=== PATIENT | female | born 1975 | race Caucasian/White ===

== ENCOUNTER 2020-03-14 12:10 | Emergency (ER) | payer OTHER, MEDICAID, SELFPAY ==
[2020-03-14] VITALS (7 sets, daily range): BP systolic 96–136; BP diastolic 64–88; PULSE 73–102; RESP 16–18; TEMP 36.2; O2SAT 85–99; BMI 29.5
--- NOTE | 2020-03-14 13:24 | ED.BACK ---
HPI - Back Pain/Injury <COSME Max - Last Filed: 03/15/20 02:19> General Chief Complaint: Urogenital-Female Stated Complaint: was admitted at for kidney infection, not chirag Time Seen by Provider: 03/14/20 12:35 Source: patient Mode of arrival: Ambulatory Limitations: no limitations History of Present Illness HPI Narrative: This is a 44-year-old female, smoker, who was recently diagnosed with pyelonephritis at [facility] 2 weeks ago and had completed 10 day course of Septra DS presents to ED with chief complain of sacrum discomfort. Patient reports she feels somewhat better after the antibiotic medication treatment and no longer has fever, chills, nausea, vomiting, bilateral flank pain. Patient denies urinary frequency, urgency, dysuria, or hematuria. Patient denies abdominal or suprapubic pain. Patient denies rash on her back. She reports now she has intermittent very low back pain in sacrum region and difficulty with movements and severe pain with certain positions. Patient reports pain was so severe she was stuck in 1 position last night for a long time. Patient reports it feels like when she had back labor. She has history of back pain and scoliosis but usually it is located in thoracic region. Patient denies lifting heavy objects recently, no recent spine manipulations or injections. Patient denies saddle anesthesia, weakness/numbness/tingling to lower extremities. Patient reports chronic constipation as well and she had small amount of pebble like stools yesterday after sitting prolonged on a toilet. She drank a bottle of magnesium citrate yesterday without good results. Patient reports currently her pain is 0/10. Related Data Previous Rx's Medication Instructions Recorded cyclobenzaprine 10 mg PO BEDTIME PRN #7 tab 03/14/20 lidocaine 1 patch TOP Q24H PRN #30 each 03/14/20 Allergies Allergy/AdvReac Type Severity Reaction Status Date / Time No Known Drug Allergies Allergy Verified 03/14/20 12:48 Review of Systems <COSME Max - Last Filed: 03/15/20 02:19> Review of Systems Narrative: General: Denies fever, chills, fatigue, malaise, sweats. HEENT: Denies sinus pain, ear pain, sore throat, difficulty swallowing, dizziness. Respiratory: Denies dyspnea, cough, wheezing, hemoptysis, sputum. Cardiovascular: Denies chest pain, palpitations, orthopnea, edema. Gastrointestinal: See HPI : See HPI Musculoskeletal: See HPI Skin: Denies rash, skin lesions, or other. Neurologic: Denies weakness, headache, numbness, change in speech, confusion, seizures, incoordination. Psychiatric: No concerning psychosocial issues. 12-point review of systems is negative except for those stated above. Patient History <COSME Max - Last Filed: 03/15/20 02:19> Medical History Bladder infection (Acute) Drug use (Acute) Hypertension (Acute) Pyelonephritis (Acute) Scoliosis (Acute) Thoracic back pain (Acute) Surgical History History of ankle surgery (Acute) Social History Smoking Status: Current every day smoker Smoking Status: Current every day smoker tobacco type: cigarettes alcohol intake frequency: 0-2 drinks per day Substance Use Type: heroin (Smokes. Stop using IV drug use 09/21) Exam <COSME Max - Last Filed: 03/15/20 02:19> Narrative Exam Narrative: GEN: Alert, oriented x 3, well appearing and nourished, and in no acute distress. Head: Normal cephalic, atraumatic. No scalp or temporal tenderness, palpable mass or rash. EYES: Pupils are equal, round, and reactive to light and accommodation. Extraocular muscles are intact bilaterally. There is no subconjunctival hemorrhage, exudate and sclera non-icteric. ENT: Hearing grossly intact. Nose without bleeding, purulent discharge or deviation. Airway patent. Neck: Trachea in midline. No JVD, non-tender without lymphadenopathy. No masses or thyroid megaly. Supple, non-tender and no meningeal signs. CARDIAC: Normal regular rate and rhythm without murmurs, gallops, or rubs. No chest wall tenderness. No peripheral edema, cyanosis or pallor. Capillary refill is less than 2 seconds. RESPIRATORY: Lungs are clear to auscultate bilaterally. No cough, wheezes, rales, or rhonchi. No stridor, respiratory distress, increase work of breathing, or accessary muscle used. ABD: Abdomen soft, nontender and non-distended. No guarding or rebound tenderness to palpate. Bowel sounds are normal in all 4 quadrants. There is no palpable masses or organomegaly. EXT: Full painless ROM of all extremities with no loss of sensation, equal strength in bilateral lower extremities, no effusion or edema. SKIN: Warm, dry, normal color for patient. No erythema, lesions or rash over visible areas. NEUROLOGICAL: Alert and oriented to place, time and person. Sensation and motor function intact bilaterally. No facial droops, dysphasia. PSYCHIATRIC: Good judgement and reason, without hallucinations, abnormal affect or abnormal behaviors during the examination. Patient is not suicidal. Initial Vital Signs Initial Vital Signs: Vital Signs Pulse Rate 101 H 03/14/20 12:28 Blood Pressure 136/88 03/14/20 12:28 Pulse Oximetry 99 03/14/20 12:28 Back/Spine/Pelvis Thoracic/Lumbar Spine: thoracic and lumbar spine normal to inspection, No surgical scar(s) present, No paraspinal tenderness, No thoraco-lumbar ROM limited, No thoracic spinal tenderness and No lumbar spinal tenderness Sacroiliac Joints: tender to palpation bilateral Sacrum: no ecchymosis, no erythema, no swelling and tenderness bilaterally <Raquel Garcia DO - Last Filed: 03/20/20 09:37> Initial Vital Signs Initial Vital Signs: Vital Signs Pulse Rate 101 H 03/14/20 12:28 Blood Pressure 136/88 03/14/20 12:28 Pulse Oximetry 99 03/14/20 12:28 Scores <COSME Max - Last Filed: 03/15/20 02:19> GCS [place] coma scale eye opening: Spontaneous Bianca coma scale verbal response: Orientated [place] coma scale motor response: Obey commands [place] coma scale total score: 15 qSOFA Altered Mental Status (GCS <15): No Respiratory rate greater than/equal to 22: No Systolic blood pressure less than or equal to 100: No qSOFA Total: 0 0-1 Not High Risk 1-3 High risk Course <COSME Max - Last Filed: 03/15/20 02:19> Orders Ordered: Discontinued Medications Acetaminophen (Tylenol) 650 mg PO NOW ONE Stop: 03/14/20 12:51 Last Admin: 03/14/20 13:29 Dose: 650 mg Documented by: RMARTIN Ketorolac Tromethamine (Toradol) 30 mg IM NOW ONE Stop: 03/14/20 12:51 Last Admin: 03/14/20 13:29 Dose: 30 mg Documented by: RMARTIN Lidocaine (Lidoderm) 1 each TOP NOW ONE Stop: 03/14/20 12:51 Last Admin: 03/14/20 13:29 Dose: 1 each Documented by: RMARTIN Vital Signs Vital signs: Vital Signs - 8 hr 03/14/20 12:32 Temperature 97.1 F L Pulse Rate 102 H Respiratory Rate 18 Blood Pressure 136/88 Pulse Oximetry 99 <Raquel Garcia DO - Last Filed: 03/20/20 09:37> Orders Ordered: Discontinued Medications Acetaminophen (Tylenol) 650 mg PO NOW ONE Stop: 03/14/20 12:51 Last Admin: 03/14/20 13:29 Dose: 650 mg Documented by: RMARTIN Ketorolac Tromethamine (Toradol) 30 mg IM NOW ONE Stop: 03/14/20 12:51 Last Admin: 03/14/20 13:29 Dose: 30 mg Documented by: RMARTIN Lidocaine (Lidoderm) 1 each TOP NOW ONE Stop: 03/14/20 12:51 Last Admin: 03/14/20 13:29 Dose: 1 each Documented by: RMARTIN Vital Signs Vital signs: Vital Signs - 8 hr 03/14/20 12:32 Temperature 97.1 F L Pulse Rate 102 H Respiratory Rate 18 Blood Pressure 136/88 Pulse Oximetry 99 MDM - Back Pain/Injury <COSME Max - Last Filed: 03/15/20 02:19> Differential Diagnosis Differential diagnosis: Likely lumbar radiculopathy, pyelonephritis, discitis and other (Low back pain, UTI, pyelonephritis, equina syndrome, ) Medical Records Attestation: I reviewed the patient's medical records. Lab Data Result diagrams: 03/14/20 13:39 03/14/20 13:39 Labs: Lab Results 03/14/20 03/14/20 03/14/20 Range/Units 13:39 13:39 13:39 WBC 9.4 (4.5-11.0) X10^3/uL RBC 3.91 L (4.0-5.2) X10^6/uL Hgb 11.2 L (12.0-16.0) g/dL Hct 33.7 L (36-46) % MCV 86.2 (80-100) fL MCH 28.7 (26-34) PG MCHC 33.4 (30-36) % RDW 12.9 (11.6-14.8) % Plt Count 351 (150-400) X10^3/uL Neut % (Auto) 67.4 (50-75) % Lymph % (Auto) 22.3 L (25-40) % [place] % (Auto) 5.4 (3-14) % Eos % (Auto) 4.2 H (2-4) % Baso % (Auto) 0.7 (0-2) % Neut # (Auto) 6400 (9736-6463) /uL Lymph # (Auto) 2100 (0686-1772) /uL [place] # (Auto) 500 (0-900) /uL Eos # (Auto) 400 (0-450) /uL Baso # (Auto) 100 (0-100) /uL Sodium 137 (137-145) mmol/L Potassium 4.4 (3.4-5.1) mmol/L Chloride 102 (98-107) mmol/L Carbon Dioxide 28 (22-32) mmol/L BUN 11 (7-17) mg/dL Creatinine 0.55 (0.52-1.04) mg/dL Estimated GFR > 60.0 (>60) mL/min BUN/Creatinine Ratio 20.0 (6-22) Glucose 104 H (70-100) mg/dL Lactate 0.8 (0.7-2.1) mmol/L Calcium 9.4 (8.4-10.2) mg/dL Point of Care Testing Test Results Negative Urine Dip Bedside Urine Glucose Negative Bedside Urine Bilirubin - Negative Bedside Urine Ketone - Negative Urine Specific [place] 1.025 Bedside Urine Occult Blood - Negative Bedside Urine pH 6.0 Bedside Urine Protein +/- 15 Bedside Urine Urobilinogen +/- 1mg Bedside Urine Nitrite - Negative Bedside Urine Leukocytes - Negative Esterase Imaging Data Abdominal x-ray: Radiologist's Impression: [address] [place] [address] XRay Report Signed Patient: Tonie Becerra [facility]#: [id number] : 1975Acct:[id number] Age/Sex: 44 / FDate of Service: 03/14/20 Loc: ED Accession Number: [id number] Procedure: XR acute abdomen series Ordering Provider: Tony Mantilla PROCEDURE: XR ACUTE ABDOMEN SERIES INDICATIONS: sacrum pain, constipation TECHNIQUE: One view chest and two views of the abdomen were acquired. COMPARISON: None. FINDINGS: Surgical changes and devices: None. Chest: Lungs are clear. Heart size is normal. No pleural effusions. No pneumoperitoneum. Abdomen: Bowel gas pattern is normal. No suspicious calcifications. Visualized solid organ contours appear normal. Bones: No suspicious bony lesions. IMPRESSION: No acute cardiopulmonary findings. No acute intra-abdominal findings. Dictated by: Sussy Dunn M.D. on 03/14/2020 at 14:30 Approved by: Sussy Dunn M.D. on 03/14/2020 at 14:30 [facility] Narrative Medical decision making narrative: This is a 44-year-old female, who has history of substance abuse and was recently treated for pyelonephritis with Septra DS 2 weeks ago at [facility] presents to ED with discomfort in sacrum region and concerned for recurring UTI/pyelonephritis. Patient does not endorse constitutional symptoms. Patient reports no urinary symptoms but noticed dark urine. Physical exam was unremarkable but mild tenderness to palpate in bilateral sacral region without rash, lesions, warmth, or mass. Patient used to use IV drug use and concerned for spine infection but there is no leukocytosis and normal lactate. Chemistry test was unremarkable normal kidney function test. Patient denies urinary/stool incontinence, saddle anesthesia. Patient is afebrile, mild tachycardia of 102 heart rates and normal respiration rate and normotensive. Acute abdominal series test was ordered given patient reports chronic constipation. X-ray test was negative for acute cardio pulmonary or intra-abdominal findings. Patient's low back pain/sacrum region pain is likely from musculoskeletal in origin. Patient was treated with IM injection of Toradol, and lidocaine patch which improved her symptoms. Her heart rate has improved to 70s before discharged to home. Patient discharged to home with same medication use as needed. Return precautions were discussed with patient and she verbalized understanding in agreement with treatment plan. <Raquel Garcia, DO - Last Filed: 03/20/20 09:37> Lab Data Labs: Lab Results 03/14/20 03/14/20 03/14/20 Range/Units 13:39 13:39 13:39 WBC 9.4 (4.5-11.0) X10^3/uL RBC 3.91 L (4.0-5.2) X10^6/uL Hgb 11.2 L (12.0-16.0) g/dL Hct 33.7 L (36-46) % MCV 86.2 (80-100) fL MCH 28.7 (26-34) PG MCHC 33.4 (30-36) % RDW 12.9 (11.6-14.8) % Plt Count 351 (150-400) X10^3/uL Neut % (Auto) 67.4 (50-75) % Lymph % (Auto) 22.3 L (25-40) % [place] % (Auto) 5.4 (3-14) % Eos % (Auto) 4.2 H (2-4) % Baso % (Auto) 0.7 (0-2) % Neut # (Auto) 6400 (9957-1904) /uL Lymph # (Auto) 2100 (0294-3347) /uL [place] # (Auto) 500 (0-900) /uL Eos # (Auto) 400 (0-450) /uL Baso # (Auto) 100 (0-100) /uL Sodium 137 (137-145) mmol/L Potassium 4.4 (3.4-5.1) mmol/L Chloride 102 (98-107) mmol/L Carbon Dioxide 28 (22-32) mmol/L BUN 11 (7-17) mg/dL Creatinine 0.55 (0.52-1.04) mg/dL Estimated GFR > 60.0 (>60) mL/min BUN/Creatinine Ratio 20.0 (6-22) Glucose 104 H (70-100) mg/dL Lactate 0.8 (0.7-2.1) mmol/L Calcium 9.4 (8.4-10.2) mg/dL Point of Care Testing Test Results Negative Urine Dip Bedside Urine Glucose Negative Bedside Urine Bilirubin - Negative Bedside Urine Ketone - Negative Urine Specific [place] 1.025 Bedside Urine Occult Blood - Negative Bedside Urine pH 6.0 Bedside Urine Protein +/- 15 Bedside Urine Urobilinogen +/- 1mg Bedside Urine Nitrite - Negative Bedside Urine Leukocytes - Negative Esterase Discharge Plan Departure Patient Disposition: Home Clinical Impression: Low back pain Qualifiers: Chronicity: unspecified Back pain laterality: midline Sciatica presence: without sciatica Qualified Code(s): M54.5 - Low back pain Discharge Date/Time: 03/14/20 15:35 Instructions: DI for Low Back Pain Activity Restrictions/Additional Instructions: You have been diagnosed with [mid low back pain is sacrum region tract infection. Lab test and urine tests are assuring. No obvious signs of infection. Your back pain is likely from musculoskeletal pain]. What to do: *Take your medications as directed. Please use [id number] Tylenol and or Motrin as needed for discomfort. Tylenol 650-1000 mg up to 3 to 4 times a day as needed for pain. Ibuprofen/Motrin 400-600 mg up to 3 to 4 times a day as needed for pain and inflammation with food to decrease GI irritation. Lidocaine patch on affected site for pain. This stays on for 12 hours and off for 12 hours. A few tabs of muscle relaxant cyclobenzaprine use it as needed. These to medication have been transmitted to [facility]. *Follow up with your primary care provider in 2-3 days, call for an appointment. Let them know you were seen in the ED and that we asked you to be seen in follow up. *Return to ED if you have any new, worsening, or concerning symptoms, such as [worsening pain, fever, rash, numbness to her groin, incontinence, weakness and tingling to lower extremities, chest pain, breathing difficulty, unable to tolerate fluids or any acute concerns]. Prescriptions: New lidocaine 5 % adhesive patch,medicated 1 patch TOP Q24H PRN (Reason: Pain) Qty: 30 RF: 0 cyclobenzaprine 10 mg tablet 10 mg PO BEDTIME PRN (Reason: muscle spasm) Qty: 7 RF: 0 Referrals: Located Within [facility] [Outside]
[2020-03-14] MEDS: LIDOCAINE PATCH 1 EACH ADH..PATCH TOP (13:29)
[2020-03-14] MEDS: ACETAMINOPHEN 325 MG TABLET 650 MG PO (13:29)
[2020-03-14] MEDS: KETOROLAC 60 MG/2 ML VIAL 30 MG IM (13:29)
--- NOTE | 2020-03-14 13:31 | DI.RAD.S_ITS ---
PROCEDURE: XR ACUTE ABDOMEN SERIES INDICATIONS: sacrum pain, constipation TECHNIQUE: One view chest and two views of the abdomen were acquired. COMPARISON: None. FINDINGS: Surgical changes and devices: None. Chest: Lungs are clear. Heart size is normal. No pleural effusions. No pneumoperitoneum. Abdomen: Bowel gas pattern is normal. No suspicious calcifications. Visualized solid organ contours appear normal. Bones: No suspicious bony lesions. IMPRESSION: No acute cardiopulmonary findings. No acute intra-abdominal findings. Dictated by: Sussy Dunn M.D. on 03/14/2020 at 14:30 Approved by: Sussy Dunn M.D. on 03/14/2020 at 14:30
[2020-03-14 13:46] LABS: Add Manual Diff / Slide Review NO; Basophils Absolute Auto 100 /uL (0-100); Basophils Percent Auto 0.7 % (0-2); Eosinophils Absolute Auto 400 /uL (0-450); Eosinophils Percent Auto 4.2 % (2-4); Hematocrit 33.7 % (36-46); Hemoglobin 11.2 g/dL (12.0-16.0); Lymphocytes Absolute Auto 2100 /uL (1100-4500); Lymphocytes Percent Auto 22.3 % (25-40); Mean Corpuscular HGB Conc 33.4 % (30-36); Mean Corpuscular Hemoglobin 28.7 PG (26-34); Mean Corpuscular Volume 86.2 fL (80-100); Monocytes Absolute Auto 500 /uL (0-900); Monocytes Percent Auto 5.4 % (3-14); Neutrophils Absolute Auto 6400 /uL (1500-7000); Neutrophils Percent Auto 67.4 % (50-75); Platelet Count 351 X10^3/uL (150-400); Red Blood Cell Count 3.91 X10^6/uL (4.0-5.2); Red Cell Distribution Width 12.9 % (11.6-14.8); White Blood Cell Count 9.4 X10^3/uL (4.5-11.0)
[2020-03-14 14:01] LABS: Lactate (Lactic Acid) 0.8 mmol/L (0.7-2.1)
[2020-03-14 14:02] LABS: Blood Urea Nitrogen 11 mg/dL (7-17); Calcium 9.4 mg/dL (8.4-10.2); Carbon Dioxide 28 mmol/L (22-32); Chloride 102 mmol/L (98-107); Estimated Glomerular Filt Rate > 60.0 mL/min (>60); Glucose 104 mg/dL (70-100); HEMOLYSIS < 15 (0-50); Potassium 4.4 mmol/L (3.4-5.1); Sodium 137 mmol/L (137-145)
== END 2020-03-14 15:35 | disposition home or self-care (01) ==
PROVIDERS: Emergency Provider Nurse Practitioner Family
DX: M54.5 Low back pain (principal)
CPT/HCPCS: 36415; 74022; 80048; 81003; 81025; 83605; 85025; 96372; 99284; J1885

== ENCOUNTER 2020-06-11 01:38 | Emergency (ER) | payer OTHER, MEDICAID, SELFPAY ==
[2020-06-11] VITALS (23 sets, daily range): BP systolic 143–184; BP diastolic 83–111; PULSE 71–100; RESP 9–20; TEMP 36.4–37.4; O2SAT 94–100
--- NOTE | 2020-06-11 | DI.MRI.S_ITS ---
PROCEDURE: MR LUMBAR SPINE WO CON INDICATIONS: NON CONTRAST STUDY PER DR GOMEZ TECHNIQUE: Noncontrast sagittal T1 spin echo and T2 fast echo, sagittal STIR, axial T1 and T2 fast spin echo through the lumbar spine. In cases with scoliosis, additional coronal T2 fast spin echo may be performed. COMPARISON: [facility], MR, MR LUMBAR SPINE W CON, 06/11/2020, 7:43. [facility], CT, CT LUMBAR SPINE W CON, 06/11/2020, 2:38. FINDINGS: Image quality: Excellent. Alignment and Curvature: There is normal bony alignment. Bone Marrow: There is enhancement and abnormal increased signal in the L5-S1 disc consistent with discitis. There is associated edema in the L5 and S1 vertebral bodies, which in retrospect are also noted to enhance, consistent with L5 and S1 osteomyelitis. There is a probable septic right L5-S1 facet joint as well. No acute vertebral body compression fractures. Spinal Cord: Conus medullaris terminates at the L2 level. Visualized cord demonstrates normal signal and size. Paraspinous Soft Tissues: No paravertebral masses. There is prominent epidural abscess posterior to L5 and S1 which measures approximately 5.8 by 1.4 x 1.5 cm. The epidural abscess is posterior to the thecal sac. There also appears to be very thin enhancing epidural abscess posterior to the thoracic cord and thecal sac extending from at least T10 through the lumbar region. This does not exert mass effect on the distal cord. T11-T12: No canal stenosis or foraminal stenosis. Probable thin posterior epidural abscess. T12-L1: Disc bulge. Bilateral facet hypertrophy. No canal stenosis. Mild right foraminal stenosis. Probable thin epidural abscess posterior to the thecal sac. L1-L2: Moderate diffuse disc bulge. Facet hypertrophy. Mild canal stenosis underestimated on choice of axial plane. Probable thin epidural abscess posterior to the sac. L2-L3: Disc bulge. No canal stenosis. [id number] bilateral foraminal stenosis. Probable very thin epidural abscess posterior to the thecal sac. L3-L4: No canal stenosis or foraminal stenosis. Facet hypertrophy. L4-L5: Disc bulge. Prominent bilateral facet hypertrophy. Mild canal stenosis underestimated by choice of axial plane. More prominent more inferior epidural abscess begins at this level. L5-S1: Discitis and osteomyelitis. Prominent posterior epidural abscess. IMPRESSION: 1. Discitis/at osteomyelitis at L5-S1. 2. Probable right L5-S1 septic joint, as well. 3. Prominent epidural abscess posteriorly at the level of L5 and S1 measuring 5.8 x 1.4 x 1.5 cm. 4. Probable thin posterior epidural abscess banding from at least T10 to L4. 5. Degenerative findings as described above. There is underlying mild canal stenosis at L1-L2 and L4-L5. Dictated by: Harjit Gomez M.D. on 06/11/2020 at 13:44 Approved by: Harjit Gomez M.D. on 06/11/2020 at 13:59
--- NOTE | 2020-06-11 01:42 | ED.BACK ---
HPI - Back Pain/Injury <Arnav José DO - Last Filed: 06/12/20 01:29> General Chief Complaint: Extremity Problem,Nontraumatic Stated Complaint: back pain, can't function anymore Time Seen by Provider: 06/11/20 01:42 Source: patient Mode of arrival: Ambulatory Limitations: no limitations History of Present Illness HPI Narrative: 44F smoker with history of intravenous drug abuse presents with ongoing low back pain for the past few months. She denies any specific injury or overuse. She states her pain is in her lower back and goes down both legs, right more than left. At its most intense it is 10/10 and currently an 8/10. She denies any loss of control of bowel or bladder. She denies any weakness of her lower extremities or footdrop. She has had no fever or chills and denies use of blood thinners. Pain is worse when she moves and improves with rest. She has been to a few local facilities for complaints of back and leg pain and was having some mild erythema of her legs which were diagnosed with an infected insect bite and given antibiotics (Clinda). Her skin lesion looks better, but her pain persists in her back and radiates into her legs. MD Complaint: back pain Onset (ago): month(s) Duration: constant Similar Symptoms Previously: Yes Location: lumbar spine Severity: severe Quality: sharp and stabbing Radiation: left leg and right leg Severity scale (1-10): 10 Relieving factors: immobilization Exacerbating factors: movement Context: IV drug use Associated symptoms: denies other symptoms and difficulty walking Related Data Previous Rx's Medication Instructions Recorded cyclobenzaprine 10 mg PO BEDTIME PRN #7 tab 03/14/20 lidocaine 1 patch TOP Q24H PRN #30 each 03/14/20 Allergies Allergy/AdvReac Type Severity Reaction Status Date / Time No Known Drug Allergies Allergy Verified 06/11/20 13:56 Review of Systems <DO Maykel Burton Last Filed: 06/12/20 01:29> Constitutional Constitutional: Denies chills, Denies fatigue, Denies fever(s), Denies frequent falls, Denies lethargy and Denies weakness Eyes Eyes: Denies change in vision, Denies eye discharge, Denies irritation and Denies loss of vision ENT Ears, Nose, Mouth, and Throat: Denies change in voice, Denies dizziness, Denies neck pain, Denies sore throat and Denies throat swelling Cardiovascular Cardiovascular: Denies chest pain, Denies irregular heart rhythm, Denies lightheadedness, Denies palpitations, Denies dyspnea, Denies dyspnea on exertion and Denies orthopnea Respiratory Respiratory: Denies cough, Denies dyspnea, Denies dyspnea on exertion and Denies wheezing Gastrointestinal Gastrointestinal: Denies abdominal pain, Denies change in bowel habits, Denies diarrhea, Denies nausea and Denies vomiting Musculoskeletal Musculoskeletal: Reports back pain, Denies neck pain and Denies numbness Integumentary/Breasts Skin/Breast: Denies pruritus, Denies erythema, Denies rash and Denies wounds Neurologic Neurologic: Denies behavioral changes, Denies confusion, Denies dizziness, Denies frequent falls, Denies loss of vision, Denies numbness and Denies weakness Psychiatric Psychiatric: Denies anxiety, Denies behavioral changes, Denies confusion, Denies depression, Denies homicidal ideation and Denies suicidal ideation Endocrine Endocrine: Denies fatigue, Denies flushing and Denies palpitations Hematologic/Lymphatic Hematologic/Lymphatic: Denies easy bruising Allergic/Immunologic Allergic/Immunologic: Denies urticaria, Denies throat swelling and Denies wheezing Patient History <Arnav José DO - Last Filed: 06/12/20 01:29> Medical History (Updated 06/11/20 @ 18:45 by Paola Combs MD) Bladder infection Drug use Hypertension Pyelonephritis Scoliosis Thoracic back pain Surgical History History of ankle surgery Social History Smoking Status: Current every day smoker Smoking Status: Current every day smoker tobacco type: cigarettes alcohol intake frequency: 0-2 drinks per day Substance Use Type: heroin (Smokes. Stop using IV drug use 09/21) Exam <Arnav José DO - Last Filed: 06/12/20 01:29> Narrative Exam Narrative: GENERAL: [44] year old patient appears stated age. Well-nourished, well-developed patient, in mild distress. Obviously in pain HEAD: Atraumatic. Normocephalic. EYES: Pupils equal round and reactive. Extraocular motions intact. No scleral icterus. No injection or drainage. ENT: Nose without bleeding, purulent drainage. Throat without erythema, tonsillar hypertrophy or exudate. Airway patent. NECK: Trachea midline. Non tender CARDIOVASCULAR: Regular rate and rhythm without murmurs, gallops, or rubs. RESPIRATORY: Clear to auscultation. Breath sounds equal bilaterally. No wheezes, rales, or rhonchi. GASTROINTESTINAL: Abdomen soft, non-tender, nondistended. EXTREMITIES: No edema or joint tenderness. BACK: Back pain in the midline as well as ice paraspinal muscles on either side midline. No saddle anesthesia. No measurable lower extremity weakness. Patellar reflexes 1+ bilaterally. NEURO: AOx3. SKIN: No rash or erythema of visible areas Initial Vital Signs Initial Vital Signs: Vital Signs Pulse Rate 100 H 06/11/20 01:47 Respiratory Rate 18 06/11/20 01:47 Blood Pressure 173/111 H 06/11/20 01:47 Pulse Oximetry 97 06/11/20 01:47 <Paola Combs MD - Last Filed: 06/11/20 18:46> Initial Vital Signs Initial Vital Signs: Vital Signs Pulse Rate 100 H 06/11/20 01:47 Respiratory Rate 18 06/11/20 01:47 Blood Pressure 173/111 H 06/11/20 01:47 Pulse Oximetry 97 06/11/20 01:47 Course <Arnav José DO - Last Filed: 06/12/20 01:29> Course Course Narrative: sign out to Dr. Combs for final disposition. Highly suspect epidural abscess. Awaiting MRI for confirmation. Orders Ordered: Discontinued Medications Hydromorphone HCl (Hydromorphone 1 Mg Inj) 1 mg IV NOW ONE Stop: 06/11/20 04:12 Last Admin: 06/11/20 04:37 Dose: 1 mg Documented by: JOSE Hydromorphone HCl (Hydromorphone 1 Mg Inj) 1 mg IV NOW ONE Stop: 06/11/20 07:16 Last Admin: 06/11/20 07:27 Dose: 1 mg Documented by: NIGHAT Hydromorphone HCl (Hydromorphone 1 Mg Inj) 1 mg IV NOW ONE Stop: 06/11/20 07:17 Last Admin: 06/11/20 07:34 Dose: 1 mg Documented by: NIGHAT Hydromorphone HCl (Hydromorphone 1 Mg Inj) 2 mg IV NOW ONE Stop: 06/11/20 09:17 Last Admin: 06/11/20 09:21 Dose: 2 mg Documented by: NIGHAT Hydromorphone HCl (Hydromorphone 1 Mg Inj) 3 mg IV NOW ONE Stop: 06/11/20 10:10 Last Admin: 06/11/20 10:16 Dose: 3 mg Documented by: NIGHAT Hydromorphone HCl (Hydromorphone 1 Mg Inj) 3 mg IV NOW ONE Stop: 06/11/20 11:06 Last Admin: 06/11/20 11:19 Dose: 3 mg Documented by: NIGHAT Hydromorphone HCl (Hydromorphone 1 Mg Inj) 3 mg IV NOW ONE Stop: 06/11/20 12:06 Last Admin: 06/11/20 12:48 Dose: 3 mg Documented by: NIGHAT Hydromorphone HCl (Hydromorphone 1 Mg Inj) 3 mg IV NOW ONE Stop: 06/11/20 13:36 Last Admin: 06/11/20 14:01 Dose: 3 mg Documented by: NIGHAT Hydroxyzine Pamoate (Hydroxyzine Pamoate 25 Mg Capsule) 50 mg PO NOW ONE Stop: 06/11/20 08:27 Last Admin: 06/11/20 08:31 Dose: 50 mg Documented by: CHERRY Lactated Ringer's (Lactated Ringers) 1,000 mls @ 1,000 mls/hr IV BOLUS ONE Stop: 06/11/20 03:08 Last Infusion: 06/11/20 04:33 Dose: 0 mls/hr Documented by: Admin: 06/11/20 02:33 Dose: 1,000 mls/hr Documented by: JOSE Ketorolac Tromethamine (Ketorolac 60 Mg/2 Ml Vial) 15 mg IV NOW ONE Stop: 06/11/20 02:10 Last Admin: 06/11/20 02:33 Dose: 15 mg Documented by: JOSE Oxycodone HCl (Oxycodone Ir 5 Mg Tablet) 20 mg PO NOW ONE Stop: 06/11/20 12:04 Last Admin: 06/11/20 12:09 Dose: 20 mg Documented by: NIGHAT Consultations Consultation #1: call to ortho ([place]) recommends [facility] for CT guided biospy/ID Consultation #2: [phone] call to [facility]. Unable to accept patient without MRI. They are holding bed pending MRI later today [phone] call to [place], left message Vital Signs Vital signs: Vital Signs - 8 hr 06/11/20 11:20 06/11/20 11:22 06/11/20 11:30 Temperature Pulse Rate 79 80 77 Blood Pressure 175/104 H Pulse Oximetry 97 100 98 06/11/20 12:00 06/11/20 13:06 06/11/20 13:08 Temperature Pulse Rate 100 H 73 71 Blood Pressure 167/93 H Pulse Oximetry 96 97 95 06/11/20 13:10 06/11/20 13:30 Temperature 99.3 F Pulse Rate 77 Blood Pressure Pulse Oximetry 97 <Paola Combs MD - Last Filed: 06/11/20 18:46> Orders Ordered: Discontinued Medications Hydromorphone HCl (Hydromorphone 1 Mg Inj) 1 mg IV NOW ONE Stop: 06/11/20 04:12 Last Admin: 06/11/20 04:37 Dose: 1 mg Documented by: JOSE Hydromorphone HCl (Hydromorphone 1 Mg Inj) 1 mg IV NOW ONE Stop: 06/11/20 07:16 Last Admin: 06/11/20 07:27 Dose: 1 mg Documented by: NIGHAT Hydromorphone HCl (Hydromorphone 1 Mg Inj) 1 mg IV NOW ONE Stop: 06/11/20 07:17 Last Admin: 06/11/20 07:34 Dose: 1 mg Documented by: NIGHAT Hydromorphone HCl (Hydromorphone 1 Mg Inj) 2 mg IV NOW ONE Stop: 06/11/20 09:17 Last Admin: 06/11/20 09:21 Dose: 2 mg Documented by: NIGHAT Hydromorphone HCl (Hydromorphone 1 Mg Inj) 3 mg IV NOW ONE Stop: 06/11/20 10:10 Last Admin: 06/11/20 10:16 Dose: 3 mg Documented by: NIGHAT Hydromorphone HCl (Hydromorphone 1 Mg Inj) 3 mg IV NOW ONE Stop: 06/11/20 11:06 Last Admin: 06/11/20 11:19 Dose: 3 mg Documented by: NIGHAT Hydromorphone HCl (Hydromorphone 1 Mg Inj) 3 mg IV NOW ONE Stop: 06/11/20 12:06 Last Admin: 06/11/20 12:48 Dose: 3 mg Documented by: NIGHAT Hydromorphone HCl (Hydromorphone 1 Mg Inj) 3 mg IV NOW ONE Stop: 06/11/20 13:36 Last Admin: 06/11/20 14:01 Dose: 3 mg Documented by: NIGHAT Hydroxyzine Pamoate (Hydroxyzine Pamoate 25 Mg Capsule) 50 mg PO NOW ONE Stop: 06/11/20 08:27 Last Admin: 06/11/20 08:31 Dose: 50 mg Documented by: CHERRY Lactated Ringer's (Lactated Ringers) 1,000 mls @ 1,000 mls/hr IV BOLUS ONE Stop: 06/11/20 03:08 Last Infusion: 06/11/20 04:33 Dose: 0 mls/hr Documented by: Admin: 06/11/20 02:33 Dose: 1,000 mls/hr Documented by: JOSE Ketorolac Tromethamine (Ketorolac 60 Mg/2 Ml Vial) 15 mg IV NOW ONE Stop: 06/11/20 02:10 Last Admin: 06/11/20 02:33 Dose: 15 mg Documented by: JOSE Oxycodone HCl (Oxycodone Ir 5 Mg Tablet) 20 mg PO NOW ONE Stop: 06/11/20 12:04 Last Admin: 06/11/20 12:09 Dose: 20 mg Documented by: NIGHAT Consultations Consultation #1: Addiction medicine and pain consultation 44-year-old woman with a long history of IV drug use. She had an approximately 6 month period of sobriety from August to February. She began having increasing back pain in February and was unable to control the pain so return to heroin use. Over the next 3 months her use increased to close to 3 g of IV heroin daily. At this point even at that dose, her back pain is inadequately controlled. As we are proceeding with her medical workup for presumed diskitis if not more, we had a nice discussion about how she would like to treat her pain while she is in the hospital. We discussed options of scheduled routine narcotics such as oxycodone while she is hospitalized, methadone for both addiction and pain control or Suboxone for addiction and pain control. She has been on Suboxone in the past 32 mg a day and still had significant cravings. Her plan was to try to get into a methadone clinic. She would much prefer to proceed with methadone for both addiction and pain control at this time. She does recognize that beginning methadone at this point will make it very difficult (1 week of no narcotic at all) to switch to Suboxone. Date indicates that self reported heroin use and methadone dosing for inpatient use for treatment of both pain and addiction is notoriously unreliable. Recommendations: 1. EKG to confirm normal QTC interval - 404msec today 2. Begin with 20 mg q.i.d. scheduled oral methadone monitor for sedation, withdrawal symptoms, pain control 3. increase by 10mg daily for inadequate control of pain and cravings, recommend max of 80mg/day total 4. can add 10mg oxycodone q6hr prn for inadequate pain control 5. add scheduled tylenol 975 TID, add gabapentin 100 TID 6. as acute pain issues are resolving, can consolidate methdone to q am dosing and gabapenting to QHS dosing 7. warm handoff to methadone treatment facility upon discharge from hospital Vital Signs Vital signs: Vital Signs - 8 hr 06/11/20 11:20 06/11/20 11:22 06/11/20 11:30 Temperature Pulse Rate 79 80 77 Blood Pressure 175/104 H Pulse Oximetry 97 100 98 06/11/20 12:00 06/11/20 13:06 06/11/20 13:08 Temperature Pulse Rate 100 H 73 71 Blood Pressure 167/93 H Pulse Oximetry 96 97 95 06/11/20 13:10 06/11/20 13:30 Temperature 99.3 F Pulse Rate 77 Blood Pressure Pulse Oximetry 97 MDM - Back Pain/Injury <Arnav José DO - Last Filed: 06/12/20 01:29> Lab Data Result diagrams: 06/11/20 03:00 06/11/20 03:00 Labs: Lab Results 06/11/20 06/11/20 06/11/20 Range/Units 03:00 03:00 06:15 WBC 13.7 H (4.5-11.0) X10^3/uL RBC 4.12 (4.0-5.2) X10^6/uL Hgb 10.8 L (12.0-16.0) g/dL Hct 34.0 L (36-46) % MCV 82.4 (80-100) fL MCH 26.2 (26-34) PG MCHC 31.8 (30-36) % RDW 16.2 H (11.6-14.8) % Plt Count 482 H (150-400) X10^3/uL Neut % (Auto) Not Reportable Lymph % (Auto) Not Reportable [place] % (Auto) Not Reportable Eos % (Auto) Not Reportable Baso % (Auto) Not Reportable Lymph # (Auto) Not Reportable [place] # (Auto) Not Reportable Baso # (Auto) Not Reportable Total Counted 100 Seg Neutrophils % 65.0 (38-70) % Lymphocytes % (Manual) 29.0 (25-45) % Monocytes % (Manual) 4.0 (2-11) % Eosinophils % (Manual) 2.0 (2-4) % Neutrophils # (Manual) 8905 H (4969-5244) /uL RBC Morphology Normal morphology ESR Cancelled Sodium 136 L (137-145) mmol/L Potassium 3.9 (3.4-5.1) mmol/L Chloride 101 (98-107) mmol/L Carbon Dioxide 31 (22-32) mmol/L BUN 6 L (7-17) mg/dL Creatinine 0.41 L (0.52-1.04) mg/dL Estimated GFR > 60.0 (>60) mL/min BUN/Creatinine Ratio 14.6 (6-22) Glucose 97 (70-100) mg/dL Calcium 9.2 (8.4-10.2) mg/dL C-Reactive Protein 7.1 H (<1.0) mg/dL SARS-CoV-2 (PCR) Negative (Negative) Point of Care Testing Test Results Negative Urine Dip Bedside Urine Glucose Negative Bedside Urine Bilirubin - Negative Bedside Urine Ketone - Negative Urine Specific [place] 1.010 Bedside Urine Occult Blood - Negative Bedside Urine pH 7.0 Bedside Urine Protein - Negative Bedside Urine Urobilinogen - Negative Bedside Urine Nitrite - Negative Bedside Urine Leukocytes - Negative Esterase Imaging Data Lumbar CT w/contrast: Radiologist's Impression: Endplate erosion with adjacent inflammation of L5 and S1. This constellation of findings is suggestive of diskitis <Paola Combs MD - Last Filed: 06/11/20 18:46> Medical Records Attestation: I reviewed the patient's medical records. Lab Data Attestation: I reviewed the patient's lab results. Labs: Lab Results 06/11/20 06/11/20 06/11/20 Range/Units 03:00 03:00 06:15 WBC 13.7 H (4.5-11.0) X10^3/uL RBC 4.12 (4.0-5.2) X10^6/uL Hgb 10.8 L (12.0-16.0) g/dL Hct 34.0 L (36-46) % MCV 82.4 (80-100) fL MCH 26.2 (26-34) PG MCHC 31.8 (30-36) % RDW 16.2 H (11.6-14.8) % Plt Count 482 H (150-400) X10^3/uL Neut % (Auto) Not Reportable Lymph % (Auto) Not Reportable [place] % (Auto) Not Reportable Eos % (Auto) Not Reportable Baso % (Auto) Not Reportable Lymph # (Auto) Not Reportable [place] # (Auto) Not Reportable Baso # (Auto) Not Reportable Total Counted 100 Seg Neutrophils % 65.0 (38-70) % Lymphocytes % (Manual) 29.0 (25-45) % Monocytes % (Manual) 4.0 (2-11) % Eosinophils % (Manual) 2.0 (2-4) % Neutrophils # (Manual) 8905 H (4418-5849) /uL RBC Morphology Normal morphology ESR Cancelled Sodium 136 L (137-145) mmol/L Potassium 3.9 (3.4-5.1) mmol/L Chloride 101 (98-107) mmol/L Carbon Dioxide 31 (22-32) mmol/L BUN 6 L (7-17) mg/dL Creatinine 0.41 L (0.52-1.04) mg/dL Estimated GFR > 60.0 (>60) mL/min BUN/Creatinine Ratio 14.6 (6-22) Glucose 97 (70-100) mg/dL Calcium 9.2 (8.4-10.2) mg/dL C-Reactive Protein 7.1 H (<1.0) mg/dL SARS-CoV-2 (PCR) Negative (Negative) Point of Care Testing Test Results Negative Urine Dip Bedside Urine Glucose Negative Bedside Urine Bilirubin - Negative Bedside Urine Ketone - Negative Urine Specific [place] 1.010 Bedside Urine Occult Blood - Negative Bedside Urine pH 7.0 Bedside Urine Protein - Negative Bedside Urine Urobilinogen - Negative Bedside Urine Nitrite - Negative Bedside Urine Leukocytes - Negative Esterase Imaging Data MRI lumbar spine with contrast: Radiologist's Impression: FINDINGS: Image quality: Excellent. Alignment and curvature: Bilateral L5 pars defects. No anterolisthesis of L5 on S1. Mild degenerative anterolisthesis of L4 on L5. Marrow: There is apparent probable enhancement of the right L5-S1 bony facet. There is apparent enhancing fluid in that facet joint. There is enhancement of the L5-S1 disc. Spinal cord: Exact location of the conus is difficult to identify without non-contrast imaging. It may terminate at T12-L1. Paraspinous soft tissues: There is probable epidural abscess behind L5 and S1 measuring approximately 4.2 x 1.6 x 1.5 cm. Reference image 10/. There is a question of potential thin epidural abscess ecstatic posterior to the thecal sac at least to the level of T11. This is not definite. IMPRESSION: 1. Limited study. Findings highly suspicious for discitis at L5-S1 and septic right L5-S1 facet joint with associated osteomyelitis of the bony facet. 2. Findings also highly suspicious for an epidural abscess behind L5 and S1. New line 3. Question thin wall epidural abscess posterior to the thecal sac extending at least from T11 inferiorly. This is not definite. Comment: Findings were discussed with Dr. Combs at the time of study dictation. The patient will return later this morning to have a noncontrast lumbar spine MRI. The 2 studies will be interpreted together for further evaluation of the presence or absence of epidural abscess and for more detailed discussion of findings at each lumbar level. Dictated by: Harjit Ray M.D. on 06/11/2020 at 8:16 FINDINGS: Image quality: Excellent. Alignment and Curvature: There is normal bony alignment. Bone Marrow: There is enhancement and abnormal increased signal in the L5-S1 disc consistent with discitis. There is associated edema in the L5 and S1 vertebral bodies, which in retrospect are also noted to enhance, consistent with L5 and S1 osteomyelitis. There is a probable septic right L5-S1 facet joint as well. No acute vertebral body compression fractures. Spinal Cord: Conus medullaris terminates at the L2 level. Visualized cord demonstrates normal signal and size. Paraspinous Soft Tissues: No paravertebral masses. There is prominent epidural abscess posterior to L5 and S1 which measures approximately 5.8 by 1.4 x 1.5 cm. The epidural abscess is posterior to the thecal sac. There also appears to be very thin enhancing epidural abscess posterior to the thoracic cord and thecal sac extending from at least T10 through the lumbar region. This does not exert mass effect on the distal cord. T11-T12: No canal stenosis or foraminal stenosis. Probable thin posterior epidural abscess. T12-L1: Disc bulge. Bilateral facet hypertrophy. No canal stenosis. Mild right foraminal stenosis. Probable thin epidural abscess posterior to the thecal sac. L1-L2: Moderate diffuse disc bulge. Facet hypertrophy. Mild canal stenosis underestimated on choice of axial plane. Probable thin epidural abscess posterior to the sac. L2-L3: Disc bulge. No canal stenosis. [id number] bilateral foraminal stenosis. Probable very thin epidural abscess posterior to the thecal sac. L3-L4: No canal stenosis or foraminal stenosis. Facet hypertrophy. L4-L5: Disc bulge. Prominent bilateral facet hypertrophy. Mild canal stenosis underestimated by choice of axial plane. More prominent more inferior epidural abscess begins at this level. L5-S1: Discitis and osteomyelitis. Prominent posterior epidural abscess. IMPRESSION: 1. Discitis/at osteomyelitis at L5-S1. 2. Probable right L5-S1 septic joint, as well. 3. Prominent epidural abscess posteriorly at the level of L5 and S1 measuring 5.8 x 1.4 x 1.5 cm. 4. Probable thin posterior epidural abscess banding from at least T10 to L4. 5. Degenerative findings as described above. There is underlying mild canal stenosis at L1-L2 and L4-L5. [facility] Narrative Medical decision making narrative: 44-year-old woman with history of IV drug use increasing back pain with diskitis at L5-S1, septic right L5-S1 facet joint with associated osteomyelitis, suspicious for epidural abscess behind L5 and S1 Pain continues to be exceptionally difficult to control. She has had multiple increasing doses Dilaudid and still is unable to find a comfortable position, severe pain down both legs with spasm secondary to the pain but no acute neurologic changes. Care is reviewed with Dr. Perez, neurosurgeon at [facility] in [place]. His recommendation was without any acute neurologic changes a medicine admission with CT-guided biopsy to obtain cultures to then begin long-term antibiotic audit treatment. She does not need neurosurgical consultation or surgical intervention unless there acute neurologic changes. No current signs of sepsis and antibiotics have not been initiated until samples can be obtained to definitively guide long-term antibiotic choice. Currently looking for bed availability. 11:[address] Pham, hospitalist [facility]. Will accept patient. Will work on bed. Discharge Plan Departure Patient Disposition: [facility] Clinical Impression: Discitis of lumbar region, Abscess in epidural space of lumbar spine Osteomyelitis Qualifiers: Osteomyelitis type: other acute Osteomyelitis location: other site Qualified Code(s): M86.18 - Other acute osteomyelitis, other site Septic joint Qualifiers: Septic arthritis location: vertebra Septic arthritis organism: due to unspecified organism Qualified Code(s): M46.50 - Other infective spondylopathies, site unspecified Prescriptions: No Action lidocaine 5 % adhesive patch,medicated 1 patch TOP Q24H PRN (Reason: Pain) Qty: 30 RF: 0 cyclobenzaprine 10 mg tablet 10 mg PO BEDTIME PRN (Reason: muscle spasm) Qty: 7 RF: 0
--- NOTE | 2020-06-11 02:09 | DI.CT.S_ITS ---
PROCEDURE: CT LUMBAR SPINE W CON INDICATIONS: severe back pain, midline, IV drugs, radiculopathy TECHNIQUE: After the administration of intravenous Isovue contrast, 3 mm thick sections acquired through the levels of interest. Sagittal and coronal reformats were then constructed. For radiation dose reduction, the following was used: automated exposure control. COMPARISON: None. FINDINGS: Image quality: Excellent. Bones: No definite acute fracture. Multilevel degenerative endplate sclerosis and spurring. Diffuse facet arthropathy. Vacuum disc phenomenon present at T12-L1. Grade 1 retrolisthesis of L1 on L2, L2 on L3. Grade 1 anterolisthesis of L4 on L5. There is marked irregular endplate sclerosis at L5-S1 with cortical loss and erosive appearance. Soft tissues: Paravertebral soft tissue edema at the level of L5-S1. IMPRESSION: Findings most suspicious for L5-S1 discitis/osteomyelitis. No acute fracture identified. Background chronic spondylitic changes and facet arthropathy as above Findings concordant with the preliminary study interpretation provided at the time of the exam. Dictated by: Jai Silver M.D. on 06/11/2020 at 8:43 Approved by: Jai Silver M.D. on 06/11/2020 at 9:05
[2020-06-11] MEDS: KETOROLAC 60 MG/2 ML VIAL 15 MG IV (02:33)
[2020-06-11] MEDS: LACTATED RINGERS 1,000 ML 1000 ML IV (02:33)
[2020-06-11 03:16] LABS: Add Manual Diff / Slide Review YES; Hemoglobin 10.8 g/dL (12.0-16.0); Mean Corpuscular HGB Conc 31.8 % (30-36); Mean Corpuscular Hemoglobin 26.2 PG (26-34); Mean Corpuscular Volume 82.4 fL (80-100); Platelet Count 482 X10^3/uL (150-400); Red Blood Cell Count 4.12 X10^6/uL (4.0-5.2); Red Cell Distribution Width 16.2 % (11.6-14.8); White Blood Cell Count 13.7 X10^3/uL (4.5-11.0)
[2020-06-11 03:22] LABS: BUN Creatinine Ratio 14.6 (6-22); Blood Urea Nitrogen 6 mg/dL (7-17); C-Reactive Protein Quant 7.1 mg/dL (<1.0); Calcium 9.2 mg/dL (8.4-10.2); Carbon Dioxide 31 mmol/L (22-32); Chloride 101 mmol/L (98-107); Estimated Glomerular Filt Rate > 60.0 mL/min (>60); Glucose 97 mg/dL (70-100); HEMOLYSIS < 15 (0-50); Potassium 3.9 mmol/L (3.4-5.1); Sodium 136 mmol/L (137-145)
[2020-06-11 03:44] LABS: Neutrophils Absolute Manual 8905 /uL (3000-5900); RBC Morphology Normal Morphology; Total Cells Counted 100
--- NOTE | 2020-06-11 04:12 | PC.NURSE ---
Has midline back pain.
[2020-06-11] MEDS: HYDROMORPHONE 1 MG INJ IV ×3 (04:37→07:34)
[2020-06-11 06:36] LABS: COVID19 -Nasal RAPID Negative (Negative)
--- NOTE | 2020-06-11 06:49 | DI.MRI.S_ITS ---
PROCEDURE: MR LUMBAR SPINE W CON INDICATIONS: pain, concern for osteomyelitis or diskitis TECHNIQUE: Limited study. No noncontrast sequences performed. No prior MRI available for comparison. After the administration of contrast, sagittal and axial T1 spin echo with fat saturation through the lumbar spine. COMPARISON: [facility], CT, CT LUMBAR SPINE W CON, 06/11/2020, 2:38. FINDINGS: Image quality: Excellent. Alignment and curvature: Bilateral L5 pars defects. No anterolisthesis of L5 on S1. Mild degenerative anterolisthesis of L4 on L5. Marrow: There is apparent probable enhancement of the right L5-S1 bony facet. There is apparent enhancing fluid in that facet joint. There is enhancement of the L5-S1 disc. Spinal cord: Exact location of the conus is difficult to identify without non-contrast imaging. It may terminate at T12-L1. Paraspinous soft tissues: There is probable epidural abscess behind L5 and S1 measuring approximately 4.2 x 1.6 x 1.5 cm. Reference image 10/2. There is a question of potential thin epidural abscess ecstatic posterior to the thecal sac at least to the level of T11. This is not definite. IMPRESSION: 1. Limited study. Findings highly suspicious for discitis at L5-S1 and septic right L5-S1 facet joint with associated osteomyelitis of the bony facet. 2. Findings also highly suspicious for an epidural abscess behind L5 and S1. New line 3. Question thin wall epidural abscess posterior to the thecal sac extending at least from T11 inferiorly. This is not definite. Comment: Findings were discussed with Dr. Combs at the time of study dictation. The patient will return later this morning to have a noncontrast lumbar spine MRI. The 2 studies will be interpreted together for further evaluation of the presence or absence of epidural abscess and for more detailed discussion of findings at each lumbar level. Dictated by: Harjit Ray M.D. on 06/11/2020 at 8:16 Approved by: Harjit Ray M.D. on 06/11/2020 at 8:40
[2020-06-11] MEDS: hydrOXYzine pamoate 25 MG CAPSULE 50 MG PO (08:31)
[2020-06-11] MEDS: HYDROMORPHONE 1 MG INJ 2 MG IV (09:21)
[2020-06-11] MEDS: HYDROMORPHONE 1 MG INJ 3 MG IV ×4 (10:16→14:01)
[2020-06-11] MEDS: OXYCODONE IR 5 MG TABLET 20 MG PO (12:09)
--- NOTE | 2020-06-11 13:34 | PC.NURSE ---
Addendum entered by Shelton Dubois CNA 06/11/20 13:35: I left a voicemail for Erwin regarding patients ETA of 1530. @ 1332 Original Note: [facility] ETA 1400. Patient to arrive at [facility] @ 1530. Rm 243 bed 1 in the U. Rpt# [phone] ext [phone]. Erwin Peña arranged bed status.
== END 2020-06-11 14:24 | disposition short-term general hospital (02) ==
PROVIDERS: Emergency Medicine; Emergency Provider Emergency Medicine
DX: M46.46 Discitis, unspecified, lumbar region (principal); G06.1 Intraspinal abscess and granuloma; M86.18 Other acute osteomyelitis, other site; M46.50 Other infective spondylopathies, site unspecified; Z20.822 Contact with and (suspected) exposure to COVID-19; I10 Essential (primary) hypertension
CPT/HCPCS: 36415; 72132; 72148; 72149; 80048; 81003; 81025; 85007; 85025; 86140; 87635; 93005; 96361; 96374; 96375; 96376; 99284; C9803; J1170; J1885; Q9967